=== PATIENT | male | born 1950 | race Caucasian/White ===

== ENCOUNTER 2018-12-03 10:20 | Observation (INO) | payer MEDICARE ==
[2018-12-03] MEDS ORDERED: Sodium Chloride 0.9% 10 ML Syringe FLUSH PRN (10:22)
[2018-12-03] MEDS ORDERED: Sodium Chloride 0.9% 2.5 ML Syringe FLUSH PRN (10:22)
[2018-12-03] MEDS ORDERED: Sodium Chloride 0.9% 10 ML SDV IV PRN (10:22)
--- NOTE | 2018-12-03 10:35 | EDM.PDOC ---
ED HPI GENERAL MEDICAL PROBLEM - General Chief Complaint: Neuro Symptoms/Deficits Stated Complaint: STROKE Time Seen by Provider: 12/03/18 10:33 - History of Present Illness INITIAL COMMENTS - FREE TEXT/NARRATIVE: 68 y/o male with history of CAD s/p stent placement 1 month ago, DM2, COPD, alcohol abuse who presented to the ER via EMS for acute stroke concern. Apparently, the patient was disoriented. His BGL at home was in the 50's and on arrival to ED recheck was 30's. D50 was administered and BGL went up to 150' s. Initially patient was disoriented, gargling. Able to follow commands. Became more alert after D50 administration. Alert and oriented x3. Able to follow commands. CN 2-12 intact. Able to move extremities. no loss of sensation. Apparently he had stents placed about 1 month ago in [place]. On plavix. Denies any chest pain. Patient is a daily drinker and drank 6 pack of beer last night. Also he uses lantus 32 U SQ at night. Denies headache, loss of vision, cough, chest pain, dyspnea, abdominal pain, dysuria, diarrhea, blood in stool. - Related Data Allergies Allergy/AdvReac Type Severity Reaction Status Date / Time No Known Allergies Allergy Verified 12/03/18 12:33 Home Meds: Home Meds Aspirin [Halfprin] 81 mg PO DAILY 02/14/15 [History] Carvedilol [Coreg] 12.5 mg PO BID 02/14/15 [History] Furosemide 120 mg PO BID 02/14/15 [History] Losartan Potassium 100 mg PO DAILY 02/14/15 [History] Minoxidil 2.5 mg PO BID 02/14/15 [History] Multivitamin [Multivitamins] 1 tab PO DAILY 02/14/15 [History] amLODIPine [Norvasc] 5 mg PO DAILY 02/14/15 [History] traMADol HCl [Tramadol HCl] 50 mg PO QID PRN 02/14/15 [History] Adapalene 1 dose TOP DAILY 12/03/18 [History] Albuterol Sulfate [Proair Hfa] 2 puff INH Q4H PRN 12/03/18 [History] Clopidogrel Bisulfate [Clopidogrel] 75 mg PO DAILY 12/03/18 [History] Tiotropium [Spiriva Handihaler] 18 mcg INH DAILY 12/03/18 [History] Tretinoin Microspheres [Tretinoin Microsphere] 1 dose TOP BEDTIME 12/03/18 [ History] atorvaSTATin Calcium [Atorvastatin Calcium] 40 mg PO DAILY 12/03/18 [History] Insulin Glarg,Human.Rec.Analog [Lantus Solostar] 20 units SUBCUT BEDTIME pen [Rx] Past Medical History Other HEENT History: wears glasses ED ROS GENERAL - Review of Systems Review Of Systems: ROS reveals no pertinent complaints other than HPI. ED EXAM, NEURO - Physical Exam Exam: See Below General Appearance: Obtunded Head Exam: Atraumatic, Normocephalic Cardiovascular: Normal Peripheral Pulses, Regular Rate, Rhythm GI/Abdominal: Normal Bowel Sounds, Soft, Non-Tender Neurological: Alert, CN II-XII Intact Back Exam: Normal Inspection Extremities: Pedal Edema Skin Exam: Warm, Dry Course - Vital Signs Last Recorded V/S: Last Vital Signs Temp 36.6 C 12/04/18 08:00 Pulse 69 12/04/18 09:14 Resp 16 12/04/18 08:00 BP 155/70 H 12/04/18 09:14 Pulse Ox 94 L 12/04/18 08:00 - Orders/Labs/Meds Labs: Laboratory Tests 12/03/18 12/03/18 12/03/18 Range/Units 10:16 10:16 10:16 WBC 10.65 (4.0-11.0) K/uL RBC 4.93 (4.50-5.90) M/uL Hgb 13.9 (13.0-17.0) g/dL Hct 42.6 (38.0-50.0) % MCV 86.4 (80.0-98.0) fL MCH 28.2 (27.0-32.0) pg MCHC 32.6 (31.0-37.0) g/dL RDW Std Deviation 50.2 (28.0-62.0) fl RDW Coeff of Day 16 H (11.0-15.0) % Plt Count 139 L (150-400) K/uL MPV 9.60 (7.40-12.00) fL Neut % (Auto) 84.0 H (48.0-80.0) % Lymph % (Auto) 7.5 L (16.0-40.0) % Blount % (Auto) 6.2 (0.0-15.0) % Eos % (Auto) 1.9 (0.0-7.0) % Baso % (Auto) 0.4 (0.0-1.5) % Neut # (Auto) 9.0 H (1.4-5.7) K/uL Lymph # (Auto) 0.8 (0.6-2.4) K/uL [place]ount # (Auto) 0.7 (0.0-0.8) K/uL Eos # (Auto) 0.2 (0.0-0.7) K/uL Baso # (Auto) 0.0 (0.0-0.1) K/uL Nucleated RBC % 0.0 /100WBC Nucleated RBCs # 0 K/uL INR 1.07 APTT 32.7 H (18.6-31.3) SEC Sodium 142 (136-148) mmol/L Potassium 3.4 L (3.5-5.1) mmol/L Chloride 103 (98-107) mmol/L Carbon Dioxide 28.7 (21.0-32.0) mmol/L BUN 32 H (7.0-18.0) mg/dL Creatinine 1.9 H (0.8-1.3) mg/dL Est Cr Clr Drug Dosing 42.64 mL/min Estimated GFR (MDRD) 35.5 ml/min Glucose 39 L* (74-106) mg/dL POC Glucose (60-110) mg/dL Hemoglobin A1c (4.5-6.2) % Calcium 8.6 (8.5-10.1) mg/dL Total Bilirubin 1.0 (0.2-1.0) mg/dL AST 23 (15-37) IU/L ALT 30 (14-63) IU/L Alkaline Phosphatase 106 (46-116) U/L Troponin I < 0.050 (0.000-0.056) ng/mL B-Natriuretic Peptide (<100) PG/ML Total Protein 7.8 (6.4-8.2) g/dL Albumin 3.8 (3.4-5.0) g/dL Globulin 4.0 (2.6-4.0) g/dL Albumin/Globulin Ratio 0.9 (0.9-1.6) Triglycerides (0-200) mg/dL Cholesterol (50-200) mg/dL LDL Cholesterol, Calc (60-180) mg/dL VLDL Cholesterol (5-55) mg/dL HDL Cholesterol (40-60) mg/dL Cholesterol/HDL Ratio (3.3-6.0) TSH 3rd Generation 4.03 H (0.36-3.74) uIU/mL Urine Color Urine Appearance Urine pH (5.0-8.0) Ur Specific [place] (1.001-1.035) Urine Protein (NEGATIVE) mg/dL Urine Glucose (UA) (NEGATIVE) mg/dL Urine Ketones (NEGATIVE) mg/dL Urine Occult Blood (NEGATIVE) Urine Nitrite (NEGATIVE) Urine Bilirubin (NEGATIVE) Urine Urobilinogen (<2.0) EU/dL Ur Leukocyte Esterase (NEGATIVE) Urine RBC (0-2/HPF) Urine WBC (0-5/HPF) Ur Epithelial Cells (NONE-FEW) Urine Bacteria (NEGATIVE) 12/03/18 12/03/18 12/03/18 Range/Units 10:16 10:16 10:16 WBC (4.0-11.0) K/uL RBC (4.50-5.90) M/uL Hgb (13.0-17.0) g/dL Hct (38.0-50.0) % MCV (80.0-98.0) fL MCH (27.0-32.0) pg MCHC (31.0-37.0) g/dL RDW Std Deviation (28.0-62.0) fl RDW Coeff of Day (11.0-15.0) % Plt Count (150-400) K/uL MPV (7.40-12.00) fL Neut % (Auto) (48.0-80.0) % Lymph % (Auto) (16.0-40.0) % [place] % (Auto) (0.0-15.0) % Eos % (Auto) (0.0-7.0) % Baso % (Auto) (0.0-1.5) % Neut # (Auto) (1.4-5.7) K/uL Lymph # (Auto) (0.6-2.4) K/uL [place] # (Auto) (0.0-0.8) K/uL Eos # (Auto) (0.0-0.7) K/uL Baso # (Auto) (0.0-0.1) K/uL Nucleated RBC % /100WBC Nucleated RBCs # K/uL INR APTT (18.6-31.3) SEC Sodium (136-148) mmol/L Potassium (3.5-5.1) mmol/L Chloride (98-107) mmol/L Carbon Dioxide (21.0-32.0) mmol/L BUN (7.0-18.0) mg/dL Creatinine (0.8-1.3) mg/dL Est Cr Clr Drug Dosing mL/min Estimated GFR (MDRD) ml/min Glucose (74-106) mg/dL POC Glucose (60-110) mg/dL Hemoglobin A1c 5.8 (4.5-6.2) % Calcium (8.5-10.1) mg/dL Total Bilirubin (0.2-1.0) mg/dL AST (15-37) IU/L ALT (14-63) IU/L Alkaline Phosphatase (46-116) U/L Troponin I (0.000-0.056) ng/mL B-Natriuretic Peptide 289 H (<100) PG/ML Total Protein (6.4-8.2) g/dL Albumin (3.4-5.0) g/dL Globulin (2.6-4.0) g/dL Albumin/Globulin Ratio (0.9-1.6) Triglycerides 88 (0-200) mg/dL Cholesterol 113 (50-200) mg/dL LDL Cholesterol, Calc 53 L (60-180) mg/dL VLDL Cholesterol 17 (5-55) mg/dL HDL Cholesterol 42 (40-60) mg/dL Cholesterol/HDL Ratio 2.7 L (3.3-6.0) TSH 3rd Generation (0.36-3.74) uIU/mL Urine Color Urine Appearance Urine pH (5.0-8.0) Ur Specific [place] (1.001-1.035) Urine Protein (NEGATIVE) mg/dL Urine Glucose (UA) (NEGATIVE) mg/dL Urine Ketones (NEGATIVE) mg/dL Urine Occult Blood (NEGATIVE) Urine Nitrite (NEGATIVE) Urine Bilirubin (NEGATIVE) Urine Urobilinogen (<2.0) EU/dL Ur Leukocyte Esterase (NEGATIVE) Urine RBC (0-2/HPF) Urine WBC (0-5/HPF) Ur Epithelial Cells (NONE-FEW) Urine Bacteria (NEGATIVE) 12/03/18 12/03/18 Range/Units 10:36 11:05 WBC (4.0-11.0) K/uL RBC (4.50-5.90) M/uL Hgb (13.0-17.0) g/dL Hct (38.0-50.0) % MCV (80.0-98.0) fL MCH (27.0-32.0) pg MCHC (31.0-37.0) g/dL RDW Std Deviation (28.0-62.0) fl RDW Coeff of Day (11.0-15.0) % Plt Count (150-400) K/uL MPV (7.40-12.00) fL Neut % (Auto) (48.0-80.0) % Lymph % (Auto) (16.0-40.0) % [place] % (Auto) (0.0-15.0) % Eos % (Auto) (0.0-7.0) % Baso % (Auto) (0.0-1.5) % Neut # (Auto) (1.4-5.7) K/uL Lymph # (Auto) (0.6-2.4) K/uL [place] # (Auto) (0.0-0.8) K/uL Eos # (Auto) (0.0-0.7) K/uL Baso # (Auto) (0.0-0.1) K/uL Nucleated RBC % /100WBC Nucleated RBCs # K/uL INR APTT (18.6-31.3) SEC Sodium (136-148) mmol/L Potassium (3.5-5.1) mmol/L Chloride (98-107) mmol/L Carbon Dioxide (21.0-32.0) mmol/L BUN (7.0-18.0) mg/dL Creatinine (0.8-1.3) mg/dL Est Cr Clr Drug Dosing mL/min Estimated GFR (MDRD) ml/min Glucose (74-106) mg/dL POC Glucose 71 (60-110) mg/dL Hemoglobin A1c (4.5-6.2) % Calcium (8.5-10.1) mg/dL Total Bilirubin (0.2-1.0) mg/dL AST (15-37) IU/L ALT (14-63) IU/L Alkaline Phosphatase (46-116) U/L Troponin I (0.000-0.056) ng/mL B-Natriuretic Peptide (<100) PG/ML Total Protein (6.4-8.2) g/dL Albumin (3.4-5.0) g/dL Globulin (2.6-4.0) g/dL Albumin/Globulin Ratio (0.9-1.6) Triglycerides (0-200) mg/dL Cholesterol (50-200) mg/dL LDL Cholesterol, Calc (60-180) mg/dL VLDL Cholesterol (5-55) mg/dL HDL Cholesterol (40-60) mg/dL Cholesterol/HDL Ratio (3.3-6.0) TSH 3rd Generation (0.36-3.74) uIU/mL Urine Color YELLOW Urine Appearance CLEAR Urine pH 6.5 (5.0-8.0) Ur Specific [place] 1.015 (1.001-1.035) Urine Protein 100 H (NEGATIVE) mg/dL Urine Glucose (UA) NEGATIVE (NEGATIVE) mg/dL Urine Ketones NEGATIVE (NEGATIVE) mg/dL Urine Occult Blood SMALL H (NEGATIVE) Urine Nitrite NEGATIVE (NEGATIVE) Urine Bilirubin NEGATIVE (NEGATIVE) Urine Urobilinogen 0.2 (<2.0) EU/dL Ur Leukocyte Esterase NEGATIVE (NEGATIVE) Urine RBC 2-5 (0-2/HPF) Urine WBC NONE SEEN (0-5/HPF) Ur Epithelial Cells RARE (NONE-FEW) Urine Bacteria NOT SEEN (NEGATIVE) Meds: Medications Discontinued Medications Generic Name Dose Route Start Last Admin Trade Name Freq PRN Reason Stop Dose Admin Acetaminophen 650 mg 12/03/18 13:15 Tylenol PO Q4H PRN Pain (mild 1-3) Albuterol 0 gm 12/03/18 12:20 Ventolin Hfa INH Q4H PRN sob Amlodipine Besylate 5 mg 12/03/18 13:30 12/04/18 09:12 Norvasc PO 5 mg DAILY ROD Administration Aspirin 81 mg 12/03/18 13:30 12/04/18 09:14 Halfprin PO 81 mg DAILY ROD Administration Atorvastatin Calcium 40 mg 12/03/18 13:30 12/04/18 09:12 Lipitor PO 40 mg DAILY ROD Administration Carvedilol 12.5 mg 12/03/18 13:30 12/04/18 09:14 Coreg PO 12.5 mg BID ROD Administration Clopidogrel Bisulfate 75 mg 12/03/18 13:30 12/04/18 09:14 Plavix PO 75 mg DAILY ROD Administration Dextrose/Water 50 ml 12/03/18 11:04 12/03/18 11:14 Dextrose 50% In Water IVPUSH 12/03/18 11:05 50 ml ONETIME ONE Administration Furosemide 120 mg 12/03/18 13:30 12/04/18 09:13 Lasix PO 120 mg BID ROD Administration Dextrose/Sodium Chloride 1,000 mls @ 150 mls/hr 12/03/18 11:15 12/04/18 00:15 Dextrose 5%-1/2 Ns IV 150 mls/hr ASDIRECTED ROD Administration Insulin Glargine 20 units 12/03/18 21:00 12/03/18 20:38 Lantus Solostar SUBCUT 20 units BEDTIME ROD Administration Losartan Potassium 100 mg 12/03/18 13:30 12/04/18 09:13 Cozaar PO 100 mg DAILY ROD Administration Ondansetron HCl 4 mg 12/03/18 13:15 Zofran IVPUSH Q4H PRN Nausea Sodium Chloride 10 ml 12/03/18 10:22 Saline Flush FLUSH ASDIRECTED PRN Keep Vein Open Sodium Chloride 2.5 ml 12/03/18 10:22 Saline Flush FLUSH ASDIRECTED PRN Keep Vein Open Sodium Chloride 10 ml 12/03/18 10:22 Normal Saline IV ASDIRECTED PRN IV Use Tiotropium [place] 18 mcg 12/03/18 13:30 12/04/18 09:34 Spiriva Handihaler INH 1 cap.ec DAILY ROD Administration Tramadol HCl 50 mg 12/03/18 12:20 Ultram PO QID PRN Pain Departure - Departure Time of Disposition: 11:00 Disposition: Refer to Observation Clinical Impression: Hypoglycemia - Discharge Information *PRESCRIPTION DRUG MONITORING PROGRAM REVIEWED*: Not Applicable *COPY OF PRESCRIPTION DRUG MONITORING REPORT IN PATIENT OBDULIO: Not Applicable
--- NOTE | 2018-12-03 10:51 | CT ---
INDICATION: Altered level of awareness TECHNIQUE: Head CT without contrast. COMPARISON: March 12, 2018 FINDINGS: CSF spaces: Within normal limits for age. Brain parenchyma: There are nonspecific low attenuation white matter changes consistent with chronic microvascular disease. No sign of hemorrhage or midline shift. There is encephalomalacia within the inferior left frontal lobe. There is a 6.6 x 7.5 x 0.4 cm colloid cyst. Mild dilatation of the frontal horns of the lateral ventricles bilaterally. Skull base and calvarium: The visualized paranasal sinuses and mastoid air cells demonstrate no acute or significant findings. The visualized orbits are grossly unremarkable. No skull fractures. There is intracranial atherosclerosis. IMPRESSION: 1. No acute findings. 2. Colloid cyst. There is mild dilatation of the frontal horns of the lateral ventricles bilaterally. The colloid cyst may be causing very mild obstructive hydrocephalus. 3. Nonspecific white matter changes likely due to small vessel disease. Please note that all CT scans at this facility use dose modulation, iterative reconstruction, and/or weight-based dosing when appropriate to reduce radiation dose to as low as reasonably achievable. Dictated by Loren Willis MD @ Dec 03 2018 10:43AM Signed by Dr. Loren Willis @ Dec 03 2018 10:50AM
[2018-12-03 10:59] LABS: CHLORIDE,CL 103 mmol/L (98-107); SODIUM,NA 142 mmol/L (136-148)
[2018-12-03 11:04] LABS: HEMOGLOBIN A1C 5.8 % (4.5-6.2)
[2018-12-03] MEDS ORDERED: 50% Dextrose in Water 50 ML Syringe IVPUSH ONE (11:04)
[2018-12-03] MEDS: Dextrose 5%-0.45% NaCl 1,000 ML IV SCH ×2 (11:14→17:51)
[2018-12-03] MEDS ORDERED: Albuterol 8 GM Inhaler INH PRN (12:20)
[2018-12-03] MEDS ORDERED: traMADol 50 MG Tab PO PRN (12:20)
--- NOTE | 2018-12-03 12:28 | PCM.HP ---
H&P History of Present Illness - General Date of Service: 12/03/18 Admit Problem/Dx: Admission Diagnosis/Problem Admission Diagnosis/Problem Hypoglycemia - History of Present Illness Initial Comments - Free Text/Narative: 68 yo male who presented to the ED with altered mental status, patient was confused and had gargbled speach. He was found to be hypoglycemic wiht a blood sugar of 37. He was given an amp of d50 and had a return to normal mentation. He reports taking 32 units of Lantus nightly and glipizide. He states he has been having lower blood sugars lately. His HgA1c is 5.8. He did drink a six pack last night which is way more than he usually drinks. - Related Data Allergies/Adverse Reactions: Allergies Allergy/AdvReac Type Severity Reaction Status Date / Time No Known Allergies Allergy Verified 12/03/18 12:33 Home Medications: Home Meds Aspirin [Halfprin] 81 mg PO DAILY 02/14/15 [History] Carvedilol [Coreg] 12.5 mg PO BID 02/14/15 [History] Furosemide 120 mg PO BID 02/14/15 [History] Insulin Glarg,Human.Rec.Analog [LantUS Solostar] 32 units SUBCUT BEDTIME [History] Losartan Potassium 100 mg PO DAILY 02/14/15 [History] Minoxidil 2.5 mg PO BID 02/14/15 [History] Multivitamin [Multivitamins] 1 tab PO DAILY 02/14/15 [History] amLODIPine [Norvasc] 5 mg PO DAILY 02/14/15 [History] traMADol HCl [Tramadol HCl] 50 mg PO QID PRN 02/14/15 [History] Adapalene 1 dose TOP DAILY 12/03/18 [History] Albuterol Sulfate [Proair Hfa] 2 puff INH Q4H PRN 12/03/18 [History] Clopidogrel Bisulfate [Clopidogrel] 75 mg PO DAILY 12/03/18 [History] Tiotropium [Spiriva Handihaler] 18 mcg INH DAILY 12/03/18 [History] Tretinoin Microspheres [Tretinoin Microsphere] 1 dose TOP BEDTIME 12/03/18 [ History] atorvaSTATin Calcium [Atorvastatin Calcium] 40 mg PO DAILY 12/03/18 [History] glipiZIDE [Glucotrol] 10 mg PO BID 12/03/18 [History] Past Medical History Other HEENT History: wears glasses Cardiovascular History: Reports: Stents Other Cardiovascular History: stents placed october 2018 Endocrine/Metabolic History: Reports: Diabetes, Type II Oncologic (Cancer) History: Reports: Colon - Past Surgical History Other GI Surgeries/Procedures: colon cancer Musculoskeletal Surgical History: Reports: Shoulder Surgery Social & Family History - Family History Family Medical History: Noncontributory - Tobacco Use Smoking Status *Q: Former Smoker Used Tobacco, but Quit: Yes Month/Year Tobacco Last Used: 05/2003 - Recreational Drug Use Recreational Drug Use: No H&P Review of Systems - Review of Systems: Review Of Systems: ROS reveals no pertinent complaints other than HPI. Exam - Exam Exam: See Below - Vital Signs Vital Signs: Last Vital Signs Temp Pulse 83 12/03/18 11:47 Resp 18 12/03/18 11:47 BP 193/95 H 12/03/18 11:47 Pulse Ox 93 L 12/03/18 11:47 Weight: 117.934 kg - Exam General: Alert, Oriented HEENT: Mucosa Moist & [place] Neck: Supple Lungs: Clear to Auscultation, Normal Respiratory Effort Cardiovascular: Regular Rate, Regular Rhythm GI/Abdominal Exam: Soft, Non-Tender Extremities: Non-Tender, No Pedal Edema Skin: Warm, Dry, Intact - Patient Data Lab Results Last 24 hrs: Laboratory Results - last 24 hr 12/03/18 12/03/18 12/03/18 Range/Units 10:16 10:16 10:16 WBC 10.65 (4.0-11.0) K/uL RBC 4.93 (4.50-5.90) M/uL Hgb 13.9 (13.0-17.0) g/dL Hct 42.6 (38.0-50.0) % MCV 86.4 (80.0-98.0) fL MCH 28.2 (27.0-32.0) pg MCHC 32.6 (31.0-37.0) g/dL RDW Std Deviation 50.2 (28.0-62.0) fl RDW Coeff of Day 16 H (11.0-15.0) % Plt Count 139 L (150-400) K/uL MPV 9.60 (7.40-12.00) fL Neut % (Auto) 84.0 H (48.0-80.0) % Lymph % (Auto) 7.5 L (16.0-40.0) % [place] % (Auto) 6.2 (0.0-15.0) % Eos % (Auto) 1.9 (0.0-7.0) % Baso % (Auto) 0.4 (0.0-1.5) % Neut # (Auto) 9.0 H (1.4-5.7) K/uL Lymph # (Auto) 0.8 (0.6-2.4) K/uL [place] # (Auto) 0.7 (0.0-0.8) K/uL Eos # (Auto) 0.2 (0.0-0.7) K/uL Baso # (Auto) 0.0 (0.0-0.1) K/uL Nucleated RBC % 0.0 /100WBC Nucleated RBCs # 0 K/uL INR 1.07 APTT 32.7 H (18.6-31.3) SEC Sodium 142 (136-148) mmol/L Potassium 3.4 L (3.5-5.1) mmol/L Chloride 103 (98-107) mmol/L Carbon Dioxide 28.7 (21.0-32.0) mmol/L BUN 32 H (7.0-18.0) mg/dL Creatinine 1.9 H (0.8-1.3) mg/dL Est Cr Clr Drug Dosing 42.64 mL/min Estimated GFR (MDRD) 35.5 ml/min Glucose 39 L* (74-106) mg/dL POC Glucose (60-110) mg/dL Hemoglobin A1c (4.5-6.2) % Calcium 8.6 (8.5-10.1) mg/dL Total Bilirubin 1.0 (0.2-1.0) mg/dL AST 23 (15-37) IU/L ALT 30 (14-63) IU/L Alkaline Phosphatase 106 (46-116) U/L Troponin I < 0.050 (0.000-0.056) ng/mL B-Natriuretic Peptide (<100) PG/ML Total Protein 7.8 (6.4-8.2) g/dL Albumin 3.8 (3.4-5.0) g/dL Globulin 4.0 (2.6-4.0) g/dL Albumin/Globulin Ratio 0.9 (0.9-1.6) Triglycerides (0-200) mg/dL Cholesterol (50-200) mg/dL LDL Cholesterol, Calc (60-180) mg/dL VLDL Cholesterol (5-55) mg/dL HDL Cholesterol (40-60) mg/dL Cholesterol/HDL Ratio (3.3-6.0) TSH 3rd Generation 4.03 H (0.36-3.74) uIU/mL Urine Color Urine Appearance Urine pH (5.0-8.0) Ur Specific [place] (1.001-1.035) Urine Protein (NEGATIVE) mg/dL Urine Glucose (UA) (NEGATIVE) mg/dL Urine Ketones (NEGATIVE) mg/dL Urine Occult Blood (NEGATIVE) Urine Nitrite (NEGATIVE) Urine Bilirubin (NEGATIVE) Urine Urobilinogen (<2.0) EU/dL Ur Leukocyte Esterase (NEGATIVE) Urine RBC (0-2/HPF) Urine WBC (0-5/HPF) Ur Epithelial Cells (NONE-FEW) Urine Bacteria (NEGATIVE) 12/03/18 12/03/18 12/03/18 Range/Units 10:16 10:16 10:16 WBC (4.0-11.0) K/uL RBC (4.50-5.90) M/uL Hgb (13.0-17.0) g/dL Hct (38.0-50.0) % MCV (80.0-98.0) fL MCH (27.0-32.0) pg MCHC (31.0-37.0) g/dL RDW Std Deviation (28.0-62.0) fl RDW Coeff of Day (11.0-15.0) % Plt Count (150-400) K/uL MPV (7.40-12.00) fL Neut % (Auto) (48.0-80.0) % Lymph % (Auto) (16.0-40.0) % [place] % (Auto) (0.0-15.0) % Eos % (Auto) (0.0-7.0) % Baso % (Auto) (0.0-1.5) % Neut # (Auto) (1.4-5.7) K/uL Lymph # (Auto) (0.6-2.4) K/uL [place] # (Auto) (0.0-0.8) K/uL Eos # (Auto) (0.0-0.7) K/uL Baso # (Auto) (0.0-0.1) K/uL Nucleated RBC % /100WBC Nucleated RBCs # K/uL INR APTT (18.6-31.3) SEC Sodium (136-148) mmol/L Potassium (3.5-5.1) mmol/L Chloride (98-107) mmol/L Carbon Dioxide (21.0-32.0) mmol/L BUN (7.0-18.0) mg/dL Creatinine (0.8-1.3) mg/dL Est Cr Clr Drug Dosing mL/min Estimated GFR (MDRD) ml/min Glucose (74-106) mg/dL POC Glucose (60-110) mg/dL Hemoglobin A1c 5.8 (4.5-6.2) % Calcium (8.5-10.1) mg/dL Total Bilirubin (0.2-1.0) mg/dL AST (15-37) IU/L ALT (14-63) IU/L Alkaline Phosphatase (46-116) U/L Troponin I (0.000-0.056) ng/mL B-Natriuretic Peptide 289 H (<100) PG/ML Total Protein (6.4-8.2) g/dL Albumin (3.4-5.0) g/dL Globulin (2.6-4.0) g/dL Albumin/Globulin Ratio (0.9-1.6) Triglycerides 88 (0-200) mg/dL Cholesterol 113 (50-200) mg/dL LDL Cholesterol, Calc 53 L (60-180) mg/dL VLDL Cholesterol 17 (5-55) mg/dL HDL Cholesterol 42 (40-60) mg/dL Cholesterol/HDL Ratio 2.7 L (3.3-6.0) TSH 3rd Generation (0.36-3.74) uIU/mL Urine Color Urine Appearance Urine pH (5.0-8.0) Ur Specific [place] (1.001-1.035) Urine Protein (NEGATIVE) mg/dL Urine Glucose (UA) (NEGATIVE) mg/dL Urine Ketones (NEGATIVE) mg/dL Urine Occult Blood (NEGATIVE) Urine Nitrite (NEGATIVE) Urine Bilirubin (NEGATIVE) Urine Urobilinogen (<2.0) EU/dL Ur Leukocyte Esterase (NEGATIVE) Urine RBC (0-2/HPF) Urine WBC (0-5/HPF) Ur Epithelial Cells (NONE-FEW) Urine Bacteria (NEGATIVE) 12/03/18 12/03/18 12/03/18 Range/Units 10:36 11:05 11:39 WBC (4.0-11.0) K/uL RBC (4.50-5.90) M/uL Hgb (13.0-17.0) g/dL Hct (38.0-50.0) % MCV (80.0-98.0) fL MCH (27.0-32.0) pg MCHC (31.0-37.0) g/dL RDW Std Deviation (28.0-62.0) fl RDW Coeff of Day (11.0-15.0) % Plt Count (150-400) K/uL MPV (7.40-12.00) fL Neut % (Auto) (48.0-80.0) % Lymph % (Auto) (16.0-40.0) % [place] % (Auto) (0.0-15.0) % Eos % (Auto) (0.0-7.0) % Baso % (Auto) (0.0-1.5) % Neut # (Auto) (1.4-5.7) K/uL Lymph # (Auto) (0.6-2.4) K/uL [place] # (Auto) (0.0-0.8) K/uL Eos # (Auto) (0.0-0.7) K/uL Baso # (Auto) (0.0-0.1) K/uL Nucleated RBC % /100WBC Nucleated RBCs # K/uL INR APTT (18.6-31.3) SEC Sodium (136-148) mmol/L Potassium (3.5-5.1) mmol/L Chloride (98-107) mmol/L Carbon Dioxide (21.0-32.0) mmol/L BUN (7.0-18.0) mg/dL Creatinine (0.8-1.3) mg/dL Est Cr Clr Drug Dosing mL/min Estimated GFR (MDRD) ml/min Glucose (74-106) mg/dL POC Glucose 71 91 (60-110) mg/dL Hemoglobin A1c (4.5-6.2) % Calcium (8.5-10.1) mg/dL Total Bilirubin (0.2-1.0) mg/dL AST (15-37) IU/L ALT (14-63) IU/L Alkaline Phosphatase (46-116) U/L Troponin I (0.000-0.056) ng/mL B-Natriuretic Peptide (<100) PG/ML Total Protein (6.4-8.2) g/dL Albumin (3.4-5.0) g/dL Globulin (2.6-4.0) g/dL Albumin/Globulin Ratio (0.9-1.6) Triglycerides (0-200) mg/dL Cholesterol (50-200) mg/dL LDL Cholesterol, Calc (60-180) mg/dL VLDL Cholesterol (5-55) mg/dL HDL Cholesterol (40-60) mg/dL Cholesterol/HDL Ratio (3.3-6.0) TSH 3rd Generation (0.36-3.74) uIU/mL Urine Color YELLOW Urine Appearance CLEAR Urine pH 6.5 (5.0-8.0) Ur Specific [place] 1.015 (1.001-1.035) Urine Protein 100 H (NEGATIVE) mg/dL Urine Glucose (UA) NEGATIVE (NEGATIVE) mg/dL Urine Ketones NEGATIVE (NEGATIVE) mg/dL Urine Occult Blood SMALL H (NEGATIVE) Urine Nitrite NEGATIVE (NEGATIVE) Urine Bilirubin NEGATIVE (NEGATIVE) Urine Urobilinogen 0.2 (<2.0) EU/dL Ur Leukocyte Esterase NEGATIVE (NEGATIVE) Urine RBC 2-5 (0-2/HPF) Urine WBC NONE SEEN (0-5/HPF) Ur Epithelial Cells RARE (NONE-FEW) Urine Bacteria NOT SEEN (NEGATIVE) Result Diagrams: 12/03/18 10:16 12/03/18 10:16 Problem List Initiated/Reviewed/Updated: Yes Orders Last 24hrs: Active Orders 24 hr Category Date Time Status Admission Status [Patient Status] [ADT] Stat ADT 12/03/18 11:35 Active Accu Check [Blood Glucose Check, Bedside] [RC] Q2HR Care 12/03/18 12:22 Ordered Assess Neurological Status [RC] ASDIRECTED Care 12/03/18 10:22 Active Bedrest [RC] ASDIRECTED Care 12/03/18 10:22 Active Cardiac Monitoring [RC] . DIRECTED Care 12/03/18 10:22 Active EKG Documentation Completion [RC] STAT Care 12/03/18 10:22 Active Height and Weight [RC] UPON Care 12/03/18 10:22 Active Initiate Acute Stroke Protocol [RC] STAT Care 12/03/18 10:22 Active NIH Stroke Scale [RC] ASDIRECTED Care 12/03/18 10:22 Active Oxygen Therapy [RC] ASDIRECTED Care 12/03/18 10:22 Active Stroke Education, General [RC] Click to Edit Care 12/03/18 10:22 Active Vital Signs [RC] Q15M Care 12/03/18 10:22 Active Chest 1V Frontal [CR] Stat Exams 12/03/18 11:08 Taken Albuterol [Proventil HFA] Med 12/03/18 12:20 Ordered 2 puff INH Q4H PRN Aspirin [Halfprin] Med 12/04/18 09:00 Ordered 81 mg PO DAILY Carvedilol [Coreg] Med 12/03/18 21:00 Ordered 12.5 mg PO BID Clopidogrel [Plavix] Med 12/04/18 09:00 Ordered 75 mg PO DAILY Dextrose 5%-0.45% NaCl [Dextrose 5%-1/2 NS] 1,000 ml Med 12/03/18 11:15 Active IV ASDIRECTED Furosemide [Lasix] Med 12/03/18 21:00 Ordered 120 mg PO BID Insulin Glarg,Human.Rec.Analog [LantUS Solostar] Med 12/03/18 21:00 Ordered 20 units SUBCUT BEDTIME Losartan Potassium Med 12/04/18 09:00 Ordered 100 mg PO DAILY Sodium Chloride 0.9% [Normal Saline] Med 12/03/18 10:22 Active 10 ml IV ASDIRECTED PRN Sodium Chloride 0.9% [Saline Flush] Med 12/03/18 10:22 Active 10 ml FLUSH ASDIRECTED PRN Sodium Chloride 0.9% [Saline Flush] Med 12/03/18 10:22 Active 2.5 ml FLUSH ASDIRECTED PRN Tiotropium Med 12/04/18 09:00 Ordered 18 mcg INH DAILY amLODIPine [Norvasc] Med 12/04/18 09:00 Ordered 5 mg PO DAILY atorvaSTATin Calcium [Atorvastatin Calcium] Med 12/04/18 09:00 Ordered 40 mg PO DAILY traMADol [Ultram] Med 12/03/18 12:20 Ordered 50 mg PO QID PRN Peripheral IV Insertion Adult [OM.PC] Stat Ot 12/03/18 10:22 Ordered Peripheral IV Insertion Adult [OM.PC] Stat Oth 12/03/18 10:22 Ordered Medication Orders Albuterol (Proventil Hfa) gm INH Q4H PRN PRN Reason: sob Amlodipine Besylate (Norvasc) 5 mg PO DAILY ROD Aspirin (Halfprin) 81 mg PO DAILY ROD Carvedilol (Coreg) 12.5 mg PO BID ROD Clopidogrel Bisulfate (Plavix) 75 mg PO DAILY ROD Furosemide (Lasix) 120 mg PO BID ROD Dextrose/Sodium Chloride (Dextrose 5%-1/2 Ns) 1,000 mls @ 150 mls/hr IV ASDIRECTED ROD Last Admin: 12/03/18 11:14 Dose: 150 mls/hr Insulin Glargine (Lantus Solostar) 20 units SUBCUT BEDTIME ROD Non-Formulary Medication (Atorvastatin Calcium [Atorvastatin Calcium]) 40 mg PO DAILY ROD Non-Formulary Medication (Losartan Potassium) 100 mg PO DAILY ROD Non-Formulary Medication (Tiotropium) 18 mcg INH DAILY ROD Sodium Chloride (Saline Flush) 10 ml FLUSH ASDIRECTED PRN PRN Reason: Keep Vein Open Sodium Chloride (Saline Flush) 2.5 ml FLUSH ASDIRECTED PRN PRN Reason: Keep Vein Open Sodium Chloride (Normal Saline) 10 ml IV ASDIRECTED PRN PRN Reason: IV Use Tramadol HCl (Ultram) 50 mg PO QID PRN PRN Reason: Pain Assessment/Plan Comment:: 68 yo male admitted for hypoglycemia. Alcohol likely contributed to his hypoglycemic episode this morning. We will hold insulin and glipizide for now. He will likely will need a lower dose of insulin in the short term. If blood glucose normalized will restart lantus at 20 units tonight.
--- NOTE | 2018-12-03 12:45 | CR ---
Indication: Dyspnea Technique: Chest 1 view Comparison: October 05, 2018 Findings/Impression: Stable cardiomegaly. Mild pulmonary cephalization. Vague patchy opacity in the right infrahilar region may represent atelectasis or infection. No effusion or pneumothorax. No acute osseous abnormality. Dictated by Loren Willis MD @ Dec 03 2018 12:44PM Signed by Dr. Loren Willis @ Dec 03 2018 12:44PM
[2018-12-03] MEDS ORDERED: Ondansetron 4 MG/2 ML SDV IVPUSH PRN (13:15)
[2018-12-03] MEDS ORDERED: Acetaminophen 325 MG Tab PO PRN (13:15)
[2018-12-03] MEDS: Tiotropium Inhaler 18 MCG Inhalation Powder Cap Kit of 5 INH SCH (13:42)
[2018-12-03] MEDS: Carvedilol 12.5 MG Tab PO SCH ×3 (14:07→21:12)
[2018-12-03] MEDS: Clopidogrel 75 MG Tab PO SCH (14:07)
[2018-12-03] MEDS: amLODIPine 5 MG Tab PO SCH (14:07)
[2018-12-03] MEDS: Losartan 50 MG Tab PO SCH (14:07)
[2018-12-03] MEDS: Aspirin 81 MG Tab.EC PO SCH (14:07)
[2018-12-03] MEDS: atorvaSTATin 40 MG Tab PO SCH (14:08)
[2018-12-03] MEDS: Furosemide 40 MG Tab PO SCH ×3 (14:08→21:12)
[2018-12-03] MEDS ORDERED: Insulin Glargine,Human Rec. Analog 100 Units/ML 3 ML Pen SUBCUT SCH (21:00)
[2018-12-04] MEDS: Dextrose 5%-0.45% NaCl 1,000 ML IV SCH (00:15)
[2018-12-04 08:05] VITALS: BP 155/70
[2018-12-04] MEDS: amLODIPine 5 MG Tab PO SCH (09:12)
[2018-12-04] MEDS: atorvaSTATin 40 MG Tab PO SCH (09:12)
[2018-12-04] MEDS: Losartan 50 MG Tab PO SCH (09:13)
[2018-12-04] MEDS: Furosemide 40 MG Tab PO SCH (09:13)
[2018-12-04] MEDS: Carvedilol 12.5 MG Tab PO SCH (09:14)
[2018-12-04] MEDS: Aspirin 81 MG Tab.EC PO SCH (09:14)
[2018-12-04] MEDS: Clopidogrel 75 MG Tab PO SCH (09:14)
--- NOTE | 2018-12-04 09:15 | PCM.DCSUM1 ---
Discharge Summary - Discharge Data Discharge Date: 12/04/18 Discharge Disposition: Home, Self-Care 01 Condition: Fair - Patient Summary/Data Hospital Course: 68 yo male who was admitted for hypoglycemia He presented to the ED with altered mental status, and a blood glucose of 32. He returned to normal mentation with correction of his blood glucose. he was given and amp of D50 followed by IV fluids of D51/2 NS. The IV fluids were stopped when his blood sugars remained stable. Last night his lantus was lowered to 20 units. This morning he is ready for discharge he was instructed to check his blood sugar three times a day, to discontinue glipizide, and lower his lantus to 20 units in the short term until follow up at [facility]. - Patient Instructions Diet: Diabetic Diet Activity: As Tolerated Notify Provider of: Nausea and/or Vomiting - Discharge Plan Home Medications: Home Meds Aspirin [Halfprin] 81 mg PO DAILY 02/14/15 [History] Carvedilol [Coreg] 12.5 mg PO BID 02/14/15 [History] Furosemide 120 mg PO BID 02/14/15 [History] Losartan Potassium 100 mg PO DAILY 02/14/15 [History] Minoxidil 2.5 mg PO BID 02/14/15 [History] Multivitamin [Multivitamins] 1 tab PO DAILY 02/14/15 [History] amLODIPine [Norvasc] 5 mg PO DAILY 02/14/15 [History] traMADol HCl [Tramadol HCl] 50 mg PO QID PRN 02/14/15 [History] Adapalene 1 dose TOP DAILY 12/03/18 [History] Albuterol Sulfate [Proair Hfa] 2 puff INH Q4H PRN 12/03/18 [History] Clopidogrel Bisulfate [Clopidogrel] 75 mg PO DAILY 12/03/18 [History] Tiotropium [Spiriva Handihaler] 18 mcg INH DAILY 12/03/18 [History] Tretinoin Microspheres [Tretinoin Microsphere] 1 dose TOP BEDTIME 12/03/18 [ History] atorvaSTATin Calcium [Atorvastatin Calcium] 40 mg PO DAILY 12/03/18 [History] Insulin Glarg,Human.Rec.Analog [Lantus Solostar] 20 units SUBCUT BEDTIME pen [Rx] Forms: ED Department Discharge Referrals: PCP,None [Primary Care Provider] - - Discharge Summary/Plan Comment DC Time >30 min.: No - Patient Data Vitals - Most Recent: Last Vital Signs Temp 36.6 C 12/04/18 08:00 Pulse 65 12/04/18 08:00 Resp 16 12/04/18 08:00 BP 155/70 H 12/04/18 08:00 Pulse Ox 94 L 12/04/18 08:00 Weight - Most Recent: 117.934 kg I&O - Last 24 hours: Intake & Output 12/03/18 12/04/18 12/04/18 22:59 06:59 14:59 Intake Total 855 2005 Output Total 800 2525 Balance 55 -519 Lab Results - Last 24 hrs: Laboratory Results - last 24 hr 12/03/18 12/03/18 12/03/18 Range/Units 10:16 10:16 10:16 WBC 10.65 (4.0-11.0) K/uL RBC 4.93 (4.50-5.90) M/uL Hgb 13.9 (13.0-17.0) g/dL Hct 42.6 (38.0-50.0) % MCV 86.4 (80.0-98.0) fL MCH 28.2 (27.0-32.0) pg MCHC 32.6 (31.0-37.0) g/dL RDW Std Deviation 50.2 (28.0-62.0) fl RDW Coeff of Day 16 H (11.0-15.0) % Plt Count 139 L (150-400) K/uL MPV 9.60 (7.40-12.00) fL Neut % (Auto) 84.0 H (48.0-80.0) % Lymph % (Auto) 7.5 L (16.0-40.0) % [place] % (Auto) 6.2 (0.0-15.0) % Eos % (Auto) 1.9 (0.0-7.0) % Baso % (Auto) 0.4 (0.0-1.5) % Neut # (Auto) 9.0 H (1.4-5.7) K/uL Lymph # (Auto) 0.8 (0.6-2.4) K/uL [place] # (Auto) 0.7 (0.0-0.8) K/uL Eos # (Auto) 0.2 (0.0-0.7) K/uL Baso # (Auto) 0.0 (0.0-0.1) K/uL Nucleated RBC % 0.0 /100WBC Nucleated RBCs # 0 K/uL INR 1.07 APTT 32.7 H (18.6-31.3) SEC Sodium 142 (136-148) mmol/L Potassium 3.4 L (3.5-5.1) mmol/L Chloride 103 (98-107) mmol/L Carbon Dioxide 28.7 (21.0-32.0) mmol/L BUN 32 H (7.0-18.0) mg/dL Creatinine 1.9 H (0.8-1.3) mg/dL Est Cr Clr Drug Dosing 42.64 mL/min Estimated GFR (MDRD) 35.5 ml/min Glucose 39 L* (74-106) mg/dL POC Glucose (60-110) mg/dL Hemoglobin A1c (4.5-6.2) % Calcium 8.6 (8.5-10.1) mg/dL Total Bilirubin 1.0 (0.2-1.0) mg/dL AST 23 (15-37) IU/L ALT 30 (14-63) IU/L Alkaline Phosphatase 106 (46-116) U/L Troponin I < 0.050 (0.000-0.056) ng/mL B-Natriuretic Peptide (<100) PG/ML Total Protein 7.8 (6.4-8.2) g/dL Albumin 3.8 (3.4-5.0) g/dL Globulin 4.0 (2.6-4.0) g/dL Albumin/Globulin Ratio 0.9 (0.9-1.6) Triglycerides (0-200) mg/dL Cholesterol (50-200) mg/dL LDL Cholesterol, Calc (60-180) mg/dL VLDL Cholesterol (5-55) mg/dL HDL Cholesterol (40-60) mg/dL Cholesterol/HDL Ratio (3.3-6.0) TSH 3rd Generation 4.03 H (0.36-3.74) uIU/mL Urine Color Urine Appearance Urine pH (5.0-8.0) Ur Specific [place] (1.001-1.035) Urine Protein (NEGATIVE) mg/dL Urine Glucose (UA) (NEGATIVE) mg/dL Urine Ketones (NEGATIVE) mg/dL Urine Occult Blood (NEGATIVE) Urine Nitrite (NEGATIVE) Urine Bilirubin (NEGATIVE) Urine Urobilinogen (<2.0) EU/dL Ur Leukocyte Esterase (NEGATIVE) Urine RBC (0-2/HPF) Urine WBC (0-5/HPF) Ur Epithelial Cells (NONE-FEW) Urine Bacteria (NEGATIVE) 12/03/18 12/03/18 12/03/18 Range/Units 10:16 10:16 10:16 WBC (4.0-11.0) K/uL RBC (4.50-5.90) M/uL Hgb (13.0-17.0) g/dL Hct (38.0-50.0) % MCV (80.0-98.0) fL MCH (27.0-32.0) pg MCHC (31.0-37.0) g/dL RDW Std Deviation (28.0-62.0) fl RDW Coeff of Day (11.0-15.0) % Plt Count (150-400) K/uL MPV (7.40-12.00) fL Neut % (Auto) (48.0-80.0) % Lymph % (Auto) (16.0-40.0) % [place] % (Auto) (0.0-15.0) % Eos % (Auto) (0.0-7.0) % Baso % (Auto) (0.0-1.5) % Neut # (Auto) (1.4-5.7) K/uL Lymph # (Auto) (0.6-2.4) K/uL [place] # (Auto) (0.0-0.8) K/uL Eos # (Auto) (0.0-0.7) K/uL Baso # (Auto) (0.0-0.1) K/uL Nucleated RBC % /100WBC Nucleated RBCs # K/uL INR APTT (18.6-31.3) SEC Sodium (136-148) mmol/L Potassium (3.5-5.1) mmol/L Chloride (98-107) mmol/L Carbon Dioxide (21.0-32.0) mmol/L BUN (7.0-18.0) mg/dL Creatinine (0.8-1.3) mg/dL Est Cr Clr Drug Dosing mL/min Estimated GFR (MDRD) ml/min Glucose (74-106) mg/dL POC Glucose (60-110) mg/dL Hemoglobin A1c 5.8 (4.5-6.2) % Calcium (8.5-10.1) mg/dL Total Bilirubin (0.2-1.0) mg/dL AST (15-37) IU/L ALT (14-63) IU/L Alkaline Phosphatase (46-116) U/L Troponin I (0.000-0.056) ng/mL B-Natriuretic Peptide 289 H (<100) PG/ML Total Protein (6.4-8.2) g/dL Albumin (3.4-5.0) g/dL Globulin (2.6-4.0) g/dL Albumin/Globulin Ratio (0.9-1.6) Triglycerides 88 (0-200) mg/dL Cholesterol 113 (50-200) mg/dL LDL Cholesterol, Calc 53 L (60-180) mg/dL VLDL Cholesterol 17 (5-55) mg/dL HDL Cholesterol 42 (40-60) mg/dL Cholesterol/HDL Ratio 2.7 L (3.3-6.0) TSH 3rd Generation (0.36-3.74) uIU/mL Urine Color Urine Appearance Urine pH (5.0-8.0) Ur Specific [place] (1.001-1.035) Urine Protein (NEGATIVE) mg/dL Urine Glucose (UA) (NEGATIVE) mg/dL Urine Ketones (NEGATIVE) mg/dL Urine Occult Blood (NEGATIVE) Urine Nitrite (NEGATIVE) Urine Bilirubin (NEGATIVE) Urine Urobilinogen (<2.0) EU/dL Ur Leukocyte Esterase (NEGATIVE) Urine RBC (0-2/HPF) Urine WBC (0-5/HPF) Ur Epithelial Cells (NONE-FEW) Urine Bacteria (NEGATIVE) 12/03/18 12/03/18 12/03/18 Range/Units 10:36 11:05 11:39 WBC (4.0-11.0) K/uL RBC (4.50-5.90) M/uL Hgb (13.0-17.0) g/dL Hct (38.0-50.0) % MCV (80.0-98.0) fL MCH (27.0-32.0) pg MCHC (31.0-37.0) g/dL RDW Std Deviation (28.0-62.0) fl RDW Coeff of Day (11.0-15.0) % Plt Count (150-400) K/uL MPV (7.40-12.00) fL Neut % (Auto) (48.0-80.0) % Lymph % (Auto) (16.0-40.0) % [place] % (Auto) (0.0-15.0) % Eos % (Auto) (0.0-7.0) % Baso % (Auto) (0.0-1.5) % Neut # (Auto) (1.4-5.7) K/uL Lymph # (Auto) (0.6-2.4) K/uL [place] # (Auto) (0.0-0.8) K/uL Eos # (Auto) (0.0-0.7) K/uL Baso # (Auto) (0.0-0.1) K/uL Nucleated RBC % /100WBC Nucleated RBCs # K/uL INR APTT (18.6-31.3) SEC Sodium (136-148) mmol/L Potassium (3.5-5.1) mmol/L Chloride (98-107) mmol/L Carbon Dioxide (21.0-32.0) mmol/L BUN (7.0-18.0) mg/dL Creatinine (0.8-1.3) mg/dL Est Cr Clr Drug Dosing mL/min Estimated GFR (MDRD) ml/min Glucose (74-106) mg/dL POC Glucose 71 91 (60-110) mg/dL Hemoglobin A1c (4.5-6.2) % Calcium (8.5-10.1) mg/dL Total Bilirubin (0.2-1.0) mg/dL AST (15-37) IU/L ALT (14-63) IU/L Alkaline Phosphatase (46-116) U/L Troponin I (0.000-0.056) ng/mL B-Natriuretic Peptide (<100) PG/ML Total Protein (6.4-8.2) g/dL Albumin (3.4-5.0) g/dL Globulin (2.6-4.0) g/dL Albumin/Globulin Ratio (0.9-1.6) Triglycerides (0-200) mg/dL Cholesterol (50-200) mg/dL LDL Cholesterol, Calc (60-180) mg/dL VLDL Cholesterol (5-55) mg/dL HDL Cholesterol (40-60) mg/dL Cholesterol/HDL Ratio (3.3-6.0) TSH 3rd Generation (0.36-3.74) uIU/mL Urine Color YELLOW Urine Appearance CLEAR Urine pH 6.5 (5.0-8.0) Ur Specific [place] 1.015 (1.001-1.035) Urine Protein 100 H (NEGATIVE) mg/dL Urine Glucose (UA) NEGATIVE (NEGATIVE) mg/dL Urine Ketones NEGATIVE (NEGATIVE) mg/dL Urine Occult Blood SMALL H (NEGATIVE) Urine Nitrite NEGATIVE (NEGATIVE) Urine Bilirubin NEGATIVE (NEGATIVE) Urine Urobilinogen 0.2 (<2.0) EU/dL Ur Leukocyte Esterase NEGATIVE (NEGATIVE) Urine RBC 2-5 (0-2/HPF) Urine WBC NONE SEEN (0-5/HPF) Ur Epithelial Cells RARE (NONE-FEW) Urine Bacteria NOT SEEN (NEGATIVE) 12/03/18 12/03/18 12/03/18 Range/Units 12:51 14:54 17:10 WBC (4.0-11.0) K/uL RBC (4.50-5.90) M/uL Hgb (13.0-17.0) g/dL Hct (38.0-50.0) % MCV (80.0-98.0) fL MCH (27.0-32.0) pg MCHC (31.0-37.0) g/dL RDW Std Deviation (28.0-62.0) fl RDW Coeff of Day (11.0-15.0) % Plt Count (150-400) K/uL MPV (7.40-12.00) fL Neut % (Auto) (48.0-80.0) % Lymph % (Auto) (16.0-40.0) % [place] % (Auto) (0.0-15.0) % Eos % (Auto) (0.0-7.0) % Baso % (Auto) (0.0-1.5) % Neut # (Auto) (1.4-5.7) K/uL Lymph # (Auto) (0.6-2.4) K/uL [place] # (Auto) (0.0-0.8) K/uL Eos # (Auto) (0.0-0.7) K/uL Baso # (Auto) (0.0-0.1) K/uL Nucleated RBC % /100WBC Nucleated RBCs # K/uL INR APTT (18.6-31.3) SEC Sodium (136-148) mmol/L Potassium (3.5-5.1) mmol/L Chloride (98-107) mmol/L Carbon Dioxide (21.0-32.0) mmol/L BUN (7.0-18.0) mg/dL Creatinine (0.8-1.3) mg/dL Est Cr Clr Drug Dosing mL/min Estimated GFR (MDRD) ml/min Glucose (74-106) mg/dL POC Glucose 143 H 139 H 115 H (60-110) mg/dL Hemoglobin A1c (4.5-6.2) % Calcium (8.5-10.1) mg/dL Total Bilirubin (0.2-1.0) mg/dL AST (15-37) IU/L ALT (14-63) IU/L Alkaline Phosphatase (46-116) U/L Troponin I (0.000-0.056) ng/mL B-Natriuretic Peptide (<100) PG/ML Total Protein (6.4-8.2) g/dL Albumin (3.4-5.0) g/dL Globulin (2.6-4.0) g/dL Albumin/Globulin Ratio (0.9-1.6) Triglycerides (0-200) mg/dL Cholesterol (50-200) mg/dL LDL Cholesterol, Calc (60-180) mg/dL VLDL Cholesterol (5-55) mg/dL HDL Cholesterol (40-60) mg/dL Cholesterol/HDL Ratio (3.3-6.0) TSH 3rd Generation (0.36-3.74) uIU/mL Urine Color Urine Appearance Urine pH (5.0-8.0) Ur Specific [place] (1.001-1.035) Urine Protein (NEGATIVE) mg/dL Urine Glucose (UA) (NEGATIVE) mg/dL Urine Ketones (NEGATIVE) mg/dL Urine Occult Blood (NEGATIVE) Urine Nitrite (NEGATIVE) Urine Bilirubin (NEGATIVE) Urine Urobilinogen (<2.0) EU/dL Ur Leukocyte Esterase (NEGATIVE) Urine RBC (0-2/HPF) Urine WBC (0-5/HPF) Ur Epithelial Cells (NONE-FEW) Urine Bacteria (NEGATIVE) 12/03/18 12/04/18 12/04/18 Range/Units 20:41 00:08 03:06 WBC (4.0-11.0) K/uL RBC (4.50-5.90) M/uL Hgb (13.0-17.0) g/dL Hct (38.0-50.0) % MCV (80.0-98.0) fL MCH (27.0-32.0) pg MCHC (31.0-37.0) g/dL RDW Std Deviation (28.0-62.0) fl RDW Coeff of Day (11.0-15.0) % Plt Count (150-400) K/uL MPV (7.40-12.00) fL Neut % (Auto) (48.0-80.0) % Lymph % (Auto) (16.0-40.0) % [place] % (Auto) (0.0-15.0) % Eos % (Auto) (0.0-7.0) % Baso % (Auto) (0.0-1.5) % Neut # (Auto) (1.4-5.7) K/uL Lymph # (Auto) (0.6-2.4) K/uL [place] # (Auto) (0.0-0.8) K/uL Eos # (Auto) (0.0-0.7) K/uL Baso # (Auto) (0.0-0.1) K/uL Nucleated RBC % /100WBC Nucleated RBCs # K/uL INR APTT (18.6-31.3) SEC Sodium (136-148) mmol/L Potassium (3.5-5.1) mmol/L Chloride (98-107) mmol/L Carbon Dioxide (21.0-32.0) mmol/L BUN (7.0-18.0) mg/dL Creatinine (0.8-1.3) mg/dL Est Cr Clr Drug Dosing mL/min Estimated GFR (MDRD) ml/min Glucose (74-106) mg/dL POC Glucose 175 H 138 H 110 (60-110) mg/dL Hemoglobin A1c (4.5-6.2) % Calcium (8.5-10.1) mg/dL Total Bilirubin (0.2-1.0) mg/dL AST (15-37) IU/L ALT (14-63) IU/L Alkaline Phosphatase (46-116) U/L Troponin I (0.000-0.056) ng/mL B-Natriuretic Peptide (<100) PG/ML Total Protein (6.4-8.2) g/dL Albumin (3.4-5.0) g/dL Globulin (2.6-4.0) g/dL Albumin/Globulin Ratio (0.9-1.6) Triglycerides (0-200) mg/dL Cholesterol (50-200) mg/dL LDL Cholesterol, Calc (60-180) mg/dL VLDL Cholesterol (5-55) mg/dL HDL Cholesterol (40-60) mg/dL Cholesterol/HDL Ratio (3.3-6.0) TSH 3rd Generation (0.36-3.74) uIU/mL Urine Color Urine Appearance Urine pH (5.0-8.0) Ur Specific [place] (1.001-1.035) Urine Protein (NEGATIVE) mg/dL Urine Glucose (UA) (NEGATIVE) mg/dL Urine Ketones (NEGATIVE) mg/dL Urine Occult Blood (NEGATIVE) Urine Nitrite (NEGATIVE) Urine Bilirubin (NEGATIVE) Urine Urobilinogen (<2.0) EU/dL Ur Leukocyte Esterase (NEGATIVE) Urine RBC (0-2/HPF) Urine WBC (0-5/HPF) Ur Epithelial Cells (NONE-FEW) Urine Bacteria (NEGATIVE) Med Orders - Current: Current Medications Acetaminophen (Tylenol) 650 mg PO Q4H PRN PRN Reason: Pain (mild 1-3) Albuterol (Ventolin Hfa) 0 gm INH Q4H PRN PRN Reason: sob Amlodipine Besylate (Norvasc) 5 mg PO DAILY ROD Last Admin: 12/03/18 14:07 Dose: 5 mg Aspirin (Halfprin) 81 mg PO DAILY ROD Last Admin: 12/03/18 14:07 Dose: 81 mg Atorvastatin Calcium (Lipitor) 40 mg PO DAILY [facility] Last Admin: 12/03/18 14:08 Dose: 40 mg Carvedilol (Coreg) 12.5 mg PO BID [facility] Last Admin: 12/03/18 21:12 Dose: Not Given Clopidogrel Bisulfate (Plavix) 75 mg PO DAILY [facility] Last Admin: 12/03/18 14:07 Dose: 75 mg Furosemide (Lasix) 120 mg PO BID [facility] Last Admin: 12/03/18 21:12 Dose: Not Given Insulin Glargine (Lantus Solostar) 20 units SUBCUT BEDTIME [facility] Last Admin: 12/03/18 20:38 Dose: 20 units Losartan Potassium (Cozaar) 100 mg PO DAILY [facility] Last Admin: 12/03/18 14:07 Dose: 100 mg Ondansetron HCl (Zofran) 4 mg IVPUSH Q4H PRN PRN Reason: Nausea Sodium Chloride (Saline Flush) 10 ml FLUSH ASDIRECTED PRN PRN Reason: Keep Vein Open Sodium Chloride (Saline Flush) 2.5 ml FLUSH ASDIRECTED PRN PRN Reason: Keep Vein Open Sodium Chloride (Normal Saline) 10 ml IV ASDIRECTED PRN PRN Reason: IV Use Tiotropium Latty (Spiriva Handihaler) 18 mcg INH DAILY [facility] Last Admin: 12/03/18 13:42 Dose: 1 cap.ec Tramadol HCl (Ultram) 50 mg PO QID PRN PRN Reason: Pain Discontinued Medications Dextrose/Water (Dextrose 50% In Water) 50 ml IVPUSH ONETIME ONE Stop: 12/03/18 11:05 Last Admin: 12/03/18 11:14 Dose: 50 ml Dextrose/Sodium Chloride (Dextrose 5%-1/2 Ns) 1,000 mls @ 150 mls/hr IV ASDIRECTED [facility] Last Admin: 12/04/18 00:15 Dose: 150 mls/hr
[2018-12-04] MEDS: Tiotropium Inhaler 18 MCG Inhalation Powder Cap Kit of 5 INH SCH (09:34)
== END 2018-12-04 10:27 | disposition home or self-care (01) ==
LOC: MW.ED 10:20 → MW.MS 11:35
PROVIDERS: ADMIT Internal Medicine; ATTEND Internal Medicine
DX: E11.649 Type 2 diabetes mellitus with hypoglycemia without coma (principal); Z79.4 Long term (current) use of insulin; Z79.82 Long term (current) use of aspirin; Z79.899 Other long term (current) drug therapy; Z95.5 Presence of coronary angioplasty implant and graft; Z85.038 Personal history of other malignant neoplasm of large intestine
CPT/HCPCS: 36415; 70450; 71045; 80053; 80061; 81001; 82962; 83036; 83880; 84443; 84484; 85025; 85610; 85730; 96365; 96375; 99285; A9270; J1815; J7042; J7060

== ENCOUNTER 2021-10-08 18:05 | Emergency (ER) | payer MEDICARE ==
[2021-10-08] MEDS ORDERED: Sodium Chloride 0.9% 10 ML Syringe FLUSH PRN (18:43)
[2021-10-08] MEDS ORDERED: Sodium Chloride 0.9% 2.5 ML Syringe FLUSH PRN (18:43)
[2021-10-08 19:26] LABS: CARBON DIOXIDE,CO2 24.9 mmol/L (21.0-32.0); POTASSIUM,K 3.1 mmol/L (3.5-5.1)
[2021-10-08] MEDS ORDERED: Piperacillin/Tazobactam 3.375 GM in Sodium Chloride 0.9% 50 ML IV ONE (19:42)
[2021-10-08] MEDS ORDERED: VANCOmycin 1.75 GM/350 ML 1.75 GM in Premix Bag 1 BAG IV SCH (20:00)
[2021-10-08 22:23] VITALS: BP 125/51; PULSE 91
== END 2021-10-08 22:06 ==
LOC: MW.ED 18:05
DX: L03.115 Cellulitis of right lower limb (principal); L03.116 Cellulitis of left lower limb; N17.9 Acute kidney failure, unspecified; I13.0 Hypertensive heart and chronic kidney disease with heart failure and stage 1 through stage 4 chronic kidney disease, or unspecified chronic kidney disease; I25.10 Atherosclerotic heart disease of native coronary artery without angina pectoris; E11.22 Type 2 diabetes mellitus with diabetic chronic kidney disease; N18.9 Chronic kidney disease, unspecified; I50.9 Heart failure, unspecified; D72.829 Elevated white blood cell count, unspecified; Z79.4 Long term (current) use of insulin; Z79.82 Long term (current) use of aspirin; Z79.899 Other long term (current) drug therapy; Z87.891 Personal history of nicotine dependence; Z20.822 Contact with and (suspected) exposure to COVID-19
CPT/HCPCS: 36415; 71045; 73590; 80053; 81003; 83605; 83690; 83735; 83880; 84484; 85025; 85610; 87040; 93005; 96365; 96367; 99285; J2543; J3370; J3490; U0002